=== PATIENT | male | born 1960 | race Caucasian/White ===

== ENCOUNTER 2016-05-23 13:03 | Emergency (ER) | payer OTHER ==
[~2016-05-23 13:03] MED LIST: ASPIRIN EC81 MG PO; CIPRO500 MG PO; FLAGYL500 MG PO; LISINOPRIL40 MG PO; NORCO 7.5-3251 EACH PO; NORVASC 5 MG TAB5 MG PO; PRAVACHOL20 MG PO
[2016-05-23 14:49] LABS: HEMOGLOBIN 15.6 gm/dl (14.0-17.5); RED BLOOD COUNT 5.21 M/UL (4.20-5.50); WHITE BLOOD COUNT 10.4 K/UL (4.5-11.0)
[2016-05-23 14:58] LABS: BUN/CREATININE RATIO 12 (0-10)
== END 2016-05-23 19:34 | disposition home or self-care (01) ==
LOC: ER1 13:03
PROVIDERS: Emergency Medicine
DX: R07.89 Other chest pain (principal); R74.8 Abnormal levels of other serum enzymes
CPT/HCPCS: 36415; 70450; 71020; 80053; 81001; 82550; 82553; 83690; 83874; 84484; 85025; 85610; 85730; 86140; 93005; 96361; 96374; 96375; 99285; J2270; J2405; J7050; Q9963

== ENCOUNTER → 2016-05-24 | Outpatient (CLI) | payer OTHER | LOC: NM 09:38 | DX: R07.9 Chest pain, unspecified (principal); R06.02 Shortness of breath; R00.1 Bradycardia, unspecified; R94.31 Abnormal electrocardiogram [ECG] [EKG] | CPT/HCPCS: 78452; 93017; A9502; J2785 ==